=== PATIENT | female | born 1970 | race Caucasian/White ===

== ENCOUNTER 2022-08-26 12:32 | Emergency (ER) | payer SELFPAY ==
[~2022-08-26] VITALS: Ht 162.6 cm; Wt 64.0 kg
[2022-08-26] MEDS ORDERED: ACETAMINOPHEN 325MG TABLET PO ONE (13:15)
[2022-08-26] MEDS ORDERED: TETANUS, DIPHTHERIA, PERTUSSIS VAC/PF 0.5ML (>10YR OLD) IM ONE ×2 (17:30→19:45)
[2022-08-26 20:49] VITALS: BP 132/75
== END 2022-08-26 20:53 | disposition home or self-care (01) ==
LOC: ER 12:32
DX: R51.9 Headache, unspecified (principal); M54.2 Cervicalgia
CPT/HCPCS: 70450; 70486; 72125; 73080; 90471; 90715; 99285; Z7610